=== PATIENT | male | born 1950 | race Caucasian/White ===

== ENCOUNTER 2016-11-07 06:44 | Day surgery (SDC) | payer OTHER ==
[~2016-11-07] VITALS: Ht 177.8 cm; Wt 109.6 kg
[2016-11-07] MEDS: NS 1000P @30 MLS/HR (KVO) IV SCH (07:15)
[2016-11-07 07:16] VITALS: BP 163/86; PULSE 78; RESP 18; TEMP 97.8; O2SAT 98
[2016-11-07] MEDS ORDERED: DILT120C9 PO (07:20)
[2016-11-07] MEDS ORDERED: ASPI81TA5 PO (07:20)
[2016-11-07] MEDS ORDERED: OMEP20TA PO (07:20)
[2016-11-07] MEDS ORDERED: NIAC500T5 PO (07:20)
[2016-11-07] MEDS ORDERED: LEVO125T4 PO (07:20)
[2016-11-07] MEDS ORDERED: NITR0.2D T-DERMAL (07:20)
[2016-11-07] MEDS ORDERED: LOVA40TA PO (07:20)
[2016-11-07] MEDS ORDERED: HYDR25TA5 PO (07:20)
[2016-11-07] MEDS ORDERED: ENAL20TA PO (07:20)
[2016-11-07] MEDS ORDERED: TOPR100T PO (07:20)
[2016-11-07 07:50] LABS: AUTOMATED NEUTROPHIL # 4.4 TH/MM3 (1.8-7.7); BASOPHIL % 0.5 % (0.0-2.0); EOSINOPHIL # 0.2 TH/MM3 (0-0.4); EOSINOPHIL % 2.5 % (0.0-4.0); HEMATOCRIT 44.2 % (39.0-51.0); HEMO FLAGS DIFF FINAL; LYMPH % 35.5 % (9.0-44.0); LYMPHOCYTE # 3.3 TH/MM3 (1.0-4.8); MEAN CORPUSCULAR HGB CONC 32.5 % (32.0-36.0); MONO % 13.7 % (0.0-8.0); NEUT % 47.8 % (16.0-70.0); PLATELET COUNT 257 TH/MM3 (150-450); RED BLOOD COUNT 4.97 MIL/MM3 (4.50-5.90); RED CELL DISTRIBUTION WIDTH 14.8 % (11.6-17.2); WHITE BLOOD COUNT 9.3 TH/MM3 (4.0-11.0)
[2016-11-07 08:00] LABS: APTT (PATIENT) 28.9 SEC (24.3-30.1); PROTHROMBIN TIME - PATIENT 10.7 SEC (9.8-11.6)
[2016-11-07 08:05] LABS: BICARBONATE 29.7 MEQ/L (21.0-32.0); POTASSIUM 3.9 MEQ/L (3.5-5.1)
[2016-11-07] MEDS ORDERED: HEPARIN-NS/PF INJ 500 ML ONE (10:12)
[2016-11-07] MEDS ORDERED: MIDAZOLAM HCL 5 MG/5 ML VIAL ONE (10:13)
[2016-11-07] MEDS ORDERED: TICAGRELOR 90 MG TAB PO ONE (11:00)
--- NOTE | 2016-11-07 11:13 | CATHPROC ---
[employer] HIS Report Study Information Study Number Scheduled Start Study Start [id number] 11/07/2016 Nov 07 2016 10:17AM Referring Institution Admit Source Facility Department 1 Other [facility] Physician and Clinical Staff Initial Li Rivera Veneer Taping Machine Offbearer Brendan RN, Nestor Recorder Tash Constantino,RT(R) Scrub Armando Oliver RCIS(BS) Procedures Performed Procedure Location (Site) Vessel Name Coronary Angiograms LCA Left Coronary Coronary Angiograms RCA Right Coronary Drug Eluting Inflatio CIRC Mid CIRC L Heart Cath PTCA CIRC Mid CIRC PTCA ADD ON'S Wire insertion Fem Art (right) Femoral Art Equipment Time Retail Planning Manager Description Size Mfg Part Number Used/Scraped WIRE, BALANCE MIDDLEWEIGHT [id number] 10:42 [employer] 190CM Used 190CM *[id number] TRANSDUCER, TRUWAVE 10:21 Trudev * [id number] Used W/dELiAsCK [id number] *[id number] [id number] *[id number] 10:58 DAIG/ST. MATEO MEDICAL ANGIOSEAL, FR6 VIP FR 6 [id number] Used [id number] 10:21 Ebix INDUSTRIES PACK, CCL CUSTOM * Used *[id number] 10:21 Ebix PACER PEN, SKIN DUAL W/ RULER * [id number] Used [id number] 10:48 MEDTRONIC BALLOON, 3.0 X 10MM EUPHORA 10MM Used *[id number] 10:52 MEDTRONIC STENT, 4.0 12 INTEGRITY 4.0 12 Used *[id number] 10:40 [employer] MEDICAL 30 ADARSH INDEFLATOR Used *[id number] [id number]-[id number]- 10:42 [employer] MEDICAL SHEATH, FR6.5 PRELUDE 11CM FR 6.5 038ACT Used *[id number] PSI-6F-11- 10:41 [employer] MEDICAL SHEATH, FR6.5 PRELUDE 11CM FR 6.5 038ACT Used *[id number] 10:21 turntable.fm WIRE, 3MMJ .035 180CM 180CM [id number] Used PROBE COVER, STERILE 10:21 [employer] MEDICAL * [id number] Used ULTRASOUND W/ GEL [id number] 10:21 NAMIC MANIFOLD, 4 PORT * Used *[id number] 10:21 NAMIC TUBING, HIGH PRESSURE 48" 48" Used *[id number] 10:40 NYCOMED OMNIPAQUE, 300 MG, 100ML 100ML [id number] Used 10:40 [employer]COMED OMNIPAQUE, 300 MG, 50ML 50ML [id number] Used 10:21 NYCOMED OMNIPAQUE, 350 MG, 100ML 100ML [id number] Used [id number] 10:21 MONGE MEDICAL BLANKET,WARM AIR CCL * Used *[id number] 10:21 TERUMO MEDICAL SHEATH, FR5 TERUMO (10CM) FR 5 [id number] Used Equipment Model, Serial, Lot Number and Expiration Data Description Model Number Serial Number Lot Number Expiration Date SHEATH, FR6.5 PRELUDE 11CM [id number] 09-27-2019 STENT, 4.0 12 INTEGRITY [id number] 12-12-2017 History: Current Medications Medication Dosage/Unit Route Frequency Last Date/Time Taken ASA Beta Royce Statins (any) Synthroid LOPRESSOR HCTZ History: Allergies Allergy Reaction No Known Allergies History: Risk Factors Family History of Hypertension Dyslipidemia Previous [place] Previous Heart Failure Premature CAD Yes Yes Yes No No Prior Valve Prior PCI Prior PCIDate Prior CABG Surgery No Yes 06/29/1996 No Cerebrovascular Peripheral Artery Chronic Lung On Dialysis Diabetes Disease Disease Disease No No No No No History: Symptoms/Diagnosis Selection Items Chest pain History: CV Disease Selection Items Known CAD History: Stress Tests Stress or Imaging Studies Performed Yes Standard Exercise Stress Test No Stress Echo No Stress Test SPECT Stress Test SPECT Result Stress Test SPECT Ischemia Risk/Extent Yes Positive Intermediate Stress Test CMR No Cardiac CTA Coronary Calcium Score No No History: Other Current Smoker No Labs Hgb (g/dl) Hct (%) WBC (l/cumm) Platelets (thousands) 12.00-18.00 37.00-55.00 4.80-10.80 140.00-450.00 14.4 44.2 9.3 257 Glucose (mg/dl) BUN (mg/dl) Creatinine (mg/dl) BUN:Creatinine (1:x) 60.00-110.00 8.00-20.00 0.10-9.00 10.00-20.00 122 25 1.0 25 Na (meq/l) K (meq/l) 138.00-146.00 3.80-5.10 140 3.9 INR (PTT:PT) 0.50-2.00 1 CPK-MB (ng/ML) 0.00-7.00 Not Drawn Medication Medication Total Dose (Bolus/Oral) Medication Total Dosage/Unit 1% XYLOCAINE 20 mL BRILLINTA 180 mg FENTANYL 100 mcg HEPARIN 8000 units VERSED 3 mg Medications (Bolus/Oral) Medication Time Given Dosage/Unit Administered By Reason VERSED 11/07/2016 10:17:42 AM 2 mg Nestor Cardona RN Patient arrived on 2 mg VERSED given by Nestor Cardona RN via Peripheral IV. FENTANYL 11/07/2016 10:18:54 AM 50 mcg Nestor Cardona RN Patient arrived on 50 mcg FENTANYL given by Nestor Cardona RN via Peripheral IV. 1% XYLOCAINE 11/07/2016 10:20:39 AM 20 mL Li Freeman Patient arrived on 20 mL 1% XYLOCAINE given by Li Freeman in Right Groin via Subcutaneous. HEPARIN 11/07/2016 10:40:42 AM 8000 units Nestor Cardona RN 8000 units HEPARIN given in lab by Nestor Cardona RN via Peripheral IV. VERSED 11/07/2016 10:41:30 AM 1 mg Nestor Cardona RN 1 mg VERSED given in lab by Nestor Cardona RN via Peripheral IV. FENTANYL 11/07/2016 10:55:28 AM 50 mcg Nestor Cardona RN 50 mcg FENTANYL given in lab by Nestor Cardona RN via Peripheral IV. BRILLINTA 11/07/2016 11:04:50 AM 180 mg Nestor Cardona RN 180 mg BRILLINTA given in lab by Nestor Cardona RN in Per mouth via Oral. Medication (Drip) Medication Time Given Dosage/Unit Concentration/Unit Diluent (ml) Solution IV Solutions 11/07/2016 10:20:09 AM 0 mL (IV) 500 NaCl .9 Patient arrived on IV Solutions via Peripheral IV. Pump/Drip Flow = 20 ml/hr using NaCl .9. Initial Case Assessment Cardiovascular HR Rhythm NIBP Chest Pain 79 REG 187/94 2 Edema Present Skin color Skin None Normal Warm Circulatory - Right Pulses Dorsalis Pedis Femoral 3 3 Scale (0,1,2,3,4,d) Circulatory - Left Pulses Dorsalis Pedis Femoral 3 3 Scale (0,1,2,3,4,d) Circulatory - Lower Extremities Color Lower Right Color Lower Left Normal Normal Neurological State Oriented to time-place- Alert Moves all extremities person Respiration - General Respiration Rate SpO2 (%) (B/min) 11 96 Final Case Assessment Cardiovascular HR Rhythm NIBP Chest Pain 81 REG 156/90 0 Edema Present Skin color Skin None Normal Warm Circulatory - Right Pulses Dorsalis Pedis Femoral 3 3 Scale (0,1,2,3,4,d) Circulatory - Left Pulses Dorsalis Pedis Femoral 3 3 Scale (0,1,2,3,4,d) Circulatory - Lower Extremities Color Lower Right Color Lower Left Normal Normal Neurological State Oriented to time-place- Alert Moves all extremities person Respiration - General Respiration Rate SpO2 (%) O2 (lpm) (B/min) 14 96 2 Chronological Log Time Study Chronological Log 10:00:54 Patient arrived via Bed. 10:01:40 Patient Name, D.O.B, / Armband Verified By R.N. Vitals capture started with the following parameters, Patient=Adult, Interval=5 min, Initial Pr tydtdi=176 mmHg, 10:16:45 Deflation Rate=5 mmHg 10:17:13 Pressure channel 1 zeroed. 10:17:42 Patient arrived on 2 mg VERSED given by Nestor Cardona RN via Peripheral IV. 10:18:54 Patient arrived on 50 mcg FENTANYL given by Nestor Cardona RN via Peripheral IV. 10:19:32 Consent signed by the physician and the patient and verified by the [facility] staff. 10:19:33 Pre-op and post- op instructions given; patient acknowledges understanding of instructions. 10:19:34 Verbal Stimulation=2 Physical Stimulation=2 Airway=2 Respiration=2 TOTAL=8. (0=absent, 1=li mited, 2=present) 10:20:04 Patient has been NPO for More than 6Hrs. 10:20:04 Skin Breakdown- 10:20:08 HR=83 bpm, MGYC=091/93 mmhg, SpO2=95.0 %, Resp=17 B/min, Pain=3, Genesis=10, Archuleta=2 10:20:08 A # 20 IV was noted in the Antecubital (left). Grade = 0 10:20:09 Patient arrived on IV Solutions via Peripheral IV. Pump/Drip Flow = 20 ml/hr using NaCl .9. 10:20:25 History and physical on the chart or being dictated. Assessment: Initial Case, HR=79 BPM, Rhythm=REG, OUZJ=761/94 mmhg, Chest Pain=2, Edema=None, Color=Normal, Skin = Warm Right Pulses: Augustus Ped=3, Femoral=3 Left Pulses: Augustus Ped=3, Femoral=3 10:20:26 Lower Right Extremities: Color=Normal Lower Left Extremities: Color=Normal Neurological: State=Alert, Ox3, KILGORE Respiration: Resp=11 B/min, SpO2=96 % 10:20:29 MD arrived. 10:20:30 A SHEATH, FR5 TERUMO (10CM) FR 5 was advanced into the Fem Art (right) using the Percutaneo us technique. Time Out. Correct patient, correct procedure,correct physician, ,power injector loaded or not l oaded with contrast with 10:20:34 surgical team present. Time Out Concurred by MD, individual staff and INVENTORY REPRESENTATIVE in procedure 10:20:37 Case Start 10:20:38 Verbal Stimulation=2 Physical Stimulation=2 Airway=2 Respiration=2 TOTAL=8. (0=absent, 1=li mited, 2=present) 10:20:39 Patient arrived on 20 mL 1% XYLOCAINE given by Li Freeman in Right Groin via Subcutane ous. 10:20:44 Access site was Right Femoral Artery.RT WITH U/S DEVICE 10:20:57 A wire was inserted via Fem Art (right). A PIGTAIL ANG. INFINITI CATHETER FR 5 was advanced over a wire. OMNIPAQUE, 350 MG, 100ML 100ML was used 10:21:00 for injections. Recorded Pressure: LV, HR=77, Condition=Condition 1 10:22:43 (Left Ventricle) LV 114/-1/16 Recorded Pressure: LV, Ao, HR=85, Condition=Condition 1 10:24:33 (Left Ventricle) LV 148/7/20, (Aorta) Ao ?/?/? 10:25:09 HR=81 bpm, EMQL=218/89 mmhg, SpO2=92.0 %, Resp=17 B/min, Pain=2, Genesis=10, Archuleta=2 Recorded Pressure: LV, HR=77, Condition=Condition 1 10:26:34 (Left Ventricle) LV 165/0/13 Recorded Pressure: LV, Ao, HR=79, Condition=Condition 1 10:27:14 (Left Ventricle) LV 147/1/14, (Aorta) Ao 147/69/102 10:28:07 Catheter was removed A JL 4.0 INFINITI CATHETER FR 5 was advanced over a wire. OMNIPAQUE, 350 MG, 100ML 100ML was us ed for 10:28:09 injections. 10:28:39 The LCA was injected and visualized at various angles. OMNIPAQUE, 350 MG, 100ML 100ML used . Recorded Pressure: Ao, HR=76, Condition=Condition 1 10:29:14 (Aorta) Ao 142/68/100 10:29:32 Catheter was removed 10:30:33 HR=83 bpm, TFAG=027/79 mmhg, SpO2=91.0 %, Resp=16 B/min, Pain=2, Genesis=10, Archuleta=2 A AR MOD INFINITI CATHETER FR 4 was advanced over a wire. OMNIPAQUE, 350 MG, 100ML 100ML was us ed for 10:30:39 injections. 10:31:46 The RCA was injected and visualized at various angles. OMNIPAQUE, 350 MG, 100ML 100ML used . 10:32:17 Catheter was removed 10:35:03 HR=82 bpm, ODQK=501/84 mmhg, SpO2=90.0 %, Resp=15 B/min, Pain=2, Genesis=10, Archuleta=2 10:36:59 Reference ECG taken 10:40:06 HR=77 bpm, GOZJ=708/81 mmhg, SpO2=91.0 %, Resp=17 B/min, Pain=2, Genesis=10, Archuleta=2 10:40:10 OMNIPAQUE, 300 MG, 50ML 50ML and 30 ADARSH INDEFLATOR added. A SHEATH, FR6.5 PRELUDE 11CM FR 6.5 was exchanged in the Fem Art (right). This was necessary in order 10:40:32 ~REASON~. 10:40:42 8000 units HEPARIN given in lab by Nestor Cardona RN via Peripheral IV. 10:41:30 1 mg VERSED given in lab by Nestor Cardona RN via Peripheral IV. A XB 4.0 GUIDE CATHETER FR 6 was advanced over a wire. OMNIPAQUE, 350 MG, 100ML 100ML was used for :41:39 injections. 10:43:30 A WIRE, BALANCE MIDDLEWEIGHT 190CM 190CM was inserted via Fem Art (right). 10:45:09 HR=81 bpm, OHEU=375/70 mmhg, SpO2=92.0 %, Resp=19 B/min, Pain=2, Genesis=10, Archuleta=2 10:46:27 Interventional wire has crossed the lesion 10:47:02 Activated Clotting Time Drawn A BALLOON, 3.0 X 10MM EUPHORA 10MM was inserted over WIRE, BALANCE MIDDLEWEIGHT 190CM 190CM via the 10:48:09 CIRC Mid. A BALLOON, 3.0 X 10MM EUPHORA 10MM over a WIRE, BALANCE MIDDLEWEIGHT 190CM 190CM in the CIRC Mi d was 10:48:24 inflated using a 30 ADARSH INDEFLATOR at 17 adarsh for 30 sec. A BALLOON, 3.0 X 10MM EUPHORA 10MM over a WIRE, BALANCE MIDDLEWEIGHT 190CM 190CM in the CIRC Mi d was 10:48:47 inflated using a 30 ADARSH INDEFLATOR at 17 adarsh for 30 sec. A BALLOON, 3.0 X 10MM EUPHORA 10MM over a WIRE, BALANCE MIDDLEWEIGHT 190CM 190CM in the CIRC Mi d was 10:48:55 inflated using a 30 ADARSH INDEFLATOR at 17 adarsh for 20 sec. 10:49:44 Balloon Removed. 10:50:09 Delivery device removed 10:50:41 HR=78 bpm, DNZS=084/91 mmhg, SpO2=96.0 %, Resp=17 B/min, Pain=2, Genesis=10, Archuleta=2 A STENT, 4.0 12 INTEGRITY 4.0 12 was deployed using a 30 ADARSH INDEFLATOR at 9 atmospheres for 30 seconds in 10:51:21 the CIRC Mid. 10:53:29 The LCA was injected and visualized at various angles. OMNIPAQUE, 350 MG, 100ML 100ML used . 10:54:24 Re-inflated the stent balloon in the CIRC Mid to 15 ADARSH for 20 seconds. 10:55:03 HR=79 bpm, RXKV=163/90 mmhg, SpO2=96.0 %, Resp=17 B/min, Pain=2, Genesis=10, Archuleta=2 10:55:28 50 mcg FENTANYL given in lab by Nestor Cardona RN via Peripheral IV. 10:55:29 Delivery device removed 10:55:46 The LCA was injected and visualized at various angles. OMNIPAQUE, 350 MG, 100ML 100ML used . 10:56:24 ACT (Normal Range 90-180) = 291 10:57:11 Delivery device removed 10:57:30 An injection in the Fem Art (right) was made through the SHEATH, FR6.5 PRELUDE 11CM FR 6.5. Assessment: Final Case, HR=81 BPM, Rhythm=REG, WHPZ=655/90 mmhg, Chest Pain=0, Edema=None, Caballo r=Normal, Skin = Warm Right Pulses: Augustus Ped=3, Femoral=3 Left Pulses: Augustus Ped=3, Femoral=3 10:57:50 Lower Right Extremities: Color=Normal Lower Left Extremities: Color=Normal Neurological: State=Alert, Ox3, KILGORE Respiration: Resp=14 B/min, SpO2=96 %, O2=2 lpm 10:58:03 Catheter(s) removed without difficulty 10:58:05 ANGIOSEAL, FR6 VIP FR 6 placement in the Fem Art (right) 10:58:29 Sterile dressing applied to site 10:58:31 No case complications noted. 10:58:33 Cine recording checked. 11:00:06 HR=77 bpm, MRBY=341/90 mmhg, SpO2=96.0 %, Resp=12 B/min, Pain=0, Geensis=10, Archuleta=2 11:00:16 Case End 11:00:51 Bedside Report will be given. 11:00:51 Implantable Device card placed in patient's chart. 11:00:52 Contrast Scanned 11:00:55 A Left Heart Cath was performed. 11:00:56 Clinical correlaton risk stratification. 11:04:50 180 mg BRILLINTA given in lab by Nestor Cardona RN in Per mouth via Oral. End Study - Contrast Media Used In Study Contrast Total Opened (mL) Total Used (mL) Total Wasted (mL) Omnipaque 120 120 0 End Study - Maximum Contrast Load Max Contrast Load (mL) 577.5 End Study - Radiation Exposure Fluoro Time (minutes) 3.0 End Study - Sheaths Sheaths Pulled By Sheath Hold Time (min) Li Freeman 2 End Study - Patient Disposition Complications Transferred To Interventional Outcome No Regular Bed successful
[2016-11-07] MEDS ORDERED: ACETAMINOPHEN 325 MG TAB PO PRN (11:15)
[2016-11-07] MEDS ORDERED: MISC INFORMATION XX ONE (11:15)
[2016-11-07] MEDS ORDERED: oxyCODONE/ACETAMINOPHEN 5 MG/325 MG TAB PO PRN (11:15)
[2016-11-07] MEDS ORDERED: TEMAZEPAM 15 MG CAP PO PRN (11:15)
[2016-11-07] MEDS ORDERED: LIDOCAINE 2% JELLY 30 ML TUBE TOP PRN (11:15)
[2016-11-07] MEDS ORDERED: IOHEXOL 350 MG/ML 100 ML BTL (for Cath Lab) OTHER ONE (12:03)
--- NOTE | 2016-11-07 12:03 | EKG ---
Date Performed: 11/07/2016 Time Performed: 08:43:50 PTAGE: 66 years EKG: Sinus rhythm with 1st degree A-V block. Right bundle branch block Abnormal ECG NO PREVIOUS TRACING DOCTOR: Jc Martin Interpretating Date/Time 11/07/2016 12:01:44
[2016-11-07] MEDS ORDERED: SODIUM CHLOR 0.9% 1000 ML INJ 1,000 ML IV SCH (13:00)
[2016-11-07] MEDS ORDERED: ATORVASTATIN 80 MG TAB PO SCH (13:00)
[2016-11-07] MEDS ORDERED: ASPIRIN 81 MG CHEW TAB PO SCH (13:30)
[2016-11-07 17:19] VITALS: BP 148/79; PULSE 63; RESP 16; TEMP 97.8; O2SAT 94
[2016-11-07 20:00] VITALS: BP 145/91; PULSE 68; RESP 20; TEMP 98; O2SAT 95
[2016-11-07] MEDS: TICAGRELOR 90 MG TAB PO SCH (20:48)
[2016-11-07] MEDS: ENALAPRIL MALEATE 10 MG TAB PO SCH (20:49)
[2016-11-07 21:00] VITALS: PULSE 70
[2016-11-07] MEDS ORDERED: NIACIN 100 MG TAB PO SCH (21:00)
[2016-11-07 22:00] VITALS: PULSE 72
[2016-11-07 23:00] VITALS: PULSE 69
[2016-11-08] VITALS (15 sets, daily range): BP systolic 127–157; BP diastolic 80–88; PULSE 61–68; RESP 18–20; TEMP 97.6–98.3; O2SAT 64–96
[2016-11-08] MEDS ORDERED: LEVOTHYROXINE SODIUM 125 MCG TAB PO SCH (06:00)
[2016-11-08 06:55] LABS: AUTOMATED NEUTROPHIL # 7.8 TH/MM3 (1.8-7.7); BASOPHIL % 0.3 % (0.0-2.0); EOSINOPHIL # 0.2 TH/MM3 (0-0.4); EOSINOPHIL % 1.7 % (0.0-4.0); HEMATOCRIT 41.6 % (39.0-51.0); HEMO FLAGS DIFF FINAL; LYMPH % 20.2 % (9.0-44.0); LYMPHOCYTE # 2.4 TH/MM3 (1.0-4.8); MEAN CELL VOLUME 87.7 FL (80.0-100.0); MEAN CORPUSCULAR HEMOGLOBIN 29.9 PG (27.0-34.0); MEAN CORPUSCULAR HGB CONC 34.1 % (32.0-36.0); NEUT % 65.8 % (16.0-70.0); PLATELET COUNT 257 TH/MM3 (150-450); RED BLOOD COUNT 4.74 MIL/MM3 (4.50-5.90); RED CELL DISTRIBUTION WIDTH 14.7 % (11.6-17.2); WHITE BLOOD COUNT 11.8 TH/MM3 (4.0-11.0)
[2016-11-08] MEDS: NS 1000P @30 MLS/HR (KVO) IV SCH (07:15)
[2016-11-08 07:21] LABS: BICARBONATE 27.8 MEQ/L (21.0-32.0); HDL CHOLESTEROL 33.8 MG/DL (40.0-60.0); POTASSIUM 3.8 MEQ/L (3.5-5.1)
[2016-11-08 07:42] LABS: CKMB 2.3 NG/ML (0.5-3.6)
[2016-11-08] MEDS: ENALAPRIL MALEATE 10 MG TAB PO SCH (08:23)
[2016-11-08] MEDS: TICAGRELOR 90 MG TAB PO SCH (08:23)
[2016-11-08] MEDS ORDERED: HYDROCHLOROTHIAZIDE 25 MG TAB PO SCH (09:00)
[2016-11-08] MEDS ORDERED: ASPIRIN EC 81 MG TABEC PO SCH (09:00)
[2016-11-08] MEDS ORDERED: PANTOPRAZOLE SOD 20 MG DELAYED RELEASE TAB PO SCH (09:00)
[2016-11-08] MEDS ORDERED: DILTIAZEM-CD 120 MG CAP ER PO SCH (09:00)
[2016-11-08] MEDS ORDERED: METOPROLOL SUCCINATE 50 MG EXTENDED RELEASE TAB PO SCH (09:00)
--- NOTE | 2016-11-08 13:43 | EKG ---
Date Performed: 11/08/2016 Time Performed: 05:18:08 PTAGE: 66 years EKG: Sinus rhythm with 1st degree A-V block Right bundle branch block Since previous tracing, no significant change no umm Abnormal ECG PREVIOUS TRACING : 11/07/2016 08.43 DOCTOR: Lacey Galeano Interpretating Date/Time 11/08/2016 13:42:21
[2016-11-08] MEDS ORDERED: ATOR1TAB18 PO (14:11)
[2016-11-08] MEDS ORDERED: BRIL90TA PO (14:11)
--- NOTE | 2016-11-08 14:12 | PD.CARD.PN ---
Objective Vital Signs / I&O Vital Signs Date Time Temp Pulse Resp B/P Pulse Ox O2 Delivery O2 Flow Rate FiO2 11/08/16 13:23 64 11/08/16 12:34 63 11/08/16 11:30 97.9 66 19 157/88 95 11/08/16 11:00 63 11/08/16 10:00 66 11/08/16 09:00 68 11/08/16 08:00 64 11/08/16 07:00 97.6 64 19 150/86 96 11/08/16 07:00 96 Room Air 11/08/16 07:00 64 11/08/16 06:00 62 11/08/16 05:00 66 11/08/16 04:00 63 11/08/16 04:00 98.3 63 20 156/82 94 11/08/16 04:00 Room Air 11/08/16 03:00 65 11/08/16 02:00 61 11/08/16 01:00 65 11/08/16 00:00 64 11/08/16 00:00 Room Air 11/08/16 00:00 98.2 68 18 127/80 64 11/07/16 23:00 69 11/07/16 22:00 72 11/07/16 21:00 70 11/07/16 20:00 68 11/07/16 20:00 Room Air 11/07/16 20:00 98.0 68 20 145/91 95 11/07/16 17:19 97.8 63 16 148/79 94 I/O 11/07/16 11/07/16 11/07/16 11/08/16 11/08/16 11/08/16 07:00 15:00 23:00 07:00 15:00 23:00 Intake Total 240 ml 780 ml Output Total 800 ml Balance 240 ml -20 ml Intake Oral 240 ml 480 ml IV Total 300 ml Output Urine Total 800 ml # Voids 1 # Bowel Movements 0 0 Laboratory Laboratory Tests Test 11/08/16 05:25 White Blood Count 11.8 TH/MM3 Red Blood Count 4.74 MIL/MM3 Hemoglobin 14.2 GM/DL Hematocrit 41.6 % Mean Corpuscular Volume 87.7 FL Mean Corpuscular Hemoglobin 29.9 PG Mean Corpuscular Hemoglobin 34.1 % Concent Red Cell Distribution Width 14.7 % Platelet Count 257 TH/MM3 Mean Platelet Volume 8.4 FL Neutrophils (%) (Auto) 65.8 % Lymphocytes (%) (Auto) 20.2 % Monocytes (%) (Auto) 12.0 % Eosinophils (%) (Auto) 1.7 % Basophils (%) (Auto) 0.3 % Neutrophils # (Auto) 7.8 TH/MM3 Lymphocytes # (Auto) 2.4 TH/MM3 Monocytes # (Auto) 1.4 TH/MM3 Eosinophils # (Auto) 0.2 TH/MM3 Basophils # (Auto) 0.0 TH/MM3 CBC Comment DIFF FINAL Differential Comment Sodium Level 137 MEQ/L Potassium Level 3.8 MEQ/L Chloride Level 99 MEQ/L Carbon Dioxide Level 27.8 MEQ/L Anion Gap 10 MEQ/L Blood Urea Nitrogen 18 MG/DL Creatinine 0.95 MG/DL Estimat Glomerular Filtration 79 ML/MIN Rate Random Glucose 106 MG/DL Calcium Level 9.0 MG/DL Total Creatine Kinase 686 U/L Creatine Kinase MB 2.3 NG/ML Creatine Kinase MB % 0.3 % Triglycerides Level 291 MG/DL Cholesterol Level 162 MG/DL LDL Cholesterol 70 MG/DL HDL Cholesterol 33.8 MG/DL Cholesterol/HDL Ratio 4.79 RATIO Assessment and Plan Assessment and Plan WILL CONT CURRENT RX INCLUDING ASA AND TICAGRELORPOD 1 PCI STABLE NO CP SOB NO CHICHI R GROIN OK LCTA RRR NO GALLOP OK TO DC PT CV WELLER CONT CURRENT INCLUDING ASA AND TICAGRELOR Tad Diaz DO November 08, 2016 14:12
--- NOTE | 2016-11-08 19:39 | MR ---
cc: CHER CURRIE DATE: 11/07/2016. INDICATIONS FOR THE PROCEDURE: Coronary artery disease, class II angina. The patient is on two antianginal medications. Intermediate probability nuclear myocardial perfusion study. PROCEDURES PERFORMED: 1. Retrograde left heart catheterization with left ventriculography and selective coronary angiography. 2. Angioplasty and stenting of the mid left circumflex artery. 3. Moderate sedation. ACCESS SITE: Right femoral artery. EQUIPMENT USED: 5-Maori pigtail catheter. 5-Maori JL4 and JR modified coronary artery catheters. XB4 guide. BMW wire. 3.0 x 10 mm balloon for pre-dilatation. 4.0 x 12 mm Integrity stent at 16 atmospheres. MEDICATIONS: Versed IV. Fentanyl IV. Heparin IV. Brilinta 180 milligrams p.o. CONTRAST: Omnipaque 120 cc. COMPLICATIONS: None. METHOD OF HEMOSTASIS: Angioseal closure. ESTIMATED BLOOD LOSS: Less than 10 cc. RESULTS HEMODYNAMICS: Heart rate 70 beats per minute. Left ventricular end diastolic pressure 8 mmHg. Left ventricle 145/8. Aorta 145/58/100. Ejection fraction 70%. The left ventricle is hyperdynamic. There is evidence of moderate mitral regurgitation. CORONARY ANGIOGRAPHY: The left main coronary artery is patent. The left anterior descending artery has patent stent in the mid portion. The first diagonal artery is totally occluded in stent and fills by a large [id number] collateral from the distal left anterior descending artery. The left circumflex artery has 90% stenosis in the mid portion. Lesion length 8 mm, pre BRAD flow 3, post BRAD flow 3, post stenosis 0. The OM #1 is patent. The OM #2 is patent. The right coronary artery is dominant and patent. The PDA is patent. The PLV is patent. DIAGNOSIS: 1. Coronary artery disease with severe stenosis of the mid left circumflex artery, patent stent in the mid left anterior descending and occluded stent in the first diagonal artery with distal vessels filling by collaterals. 2. Well preserved, hyper-dynamic left ventricular systolic function. 3. Moderate mitral regurgitation. 4. Successful angioplasty and stenting of the mid left circumflex artery. DISPOSITION: Mr. Grossman will be monitored on telemetry after his procedure with serial enzymes and EKGs. We will continue aggressive modification of his cardiac risk factors. We will continue therapy with Brilinta and baby aspirin. He will be discharged home tomorrow if stable. I will see him back for followup in our office after discharge. MD WILLAM Meadows/ASHANTI /11:12 AM /7:30 PM HA
== END 2016-11-08 14:38 | disposition home or self-care (01) ==
LOC: HDOC 06:44 → HDIC 06:45 → HCIS 17:16 → HDOC 11-08 14:38
PROVIDERS: ATTEND Internal Medicine Interventional Cardiology
DX: I25.118 Atherosclerotic heart disease of native coronary artery with other forms of angina pectoris (principal); I45.19 Other right bundle-branch block; I44.0 Atrioventricular block, first degree; I34.0 Nonrheumatic mitral (valve) insufficiency; R79.89 Other specified abnormal findings of blood chemistry
CPT/HCPCS: 80048; 80061; 82550; 82552; 85002; 85025; 85610; 85730; 92928; 93005; 93458; C1725; C1760; C1769; C1876; C1887; C1893; G0269; J1644; J2250; J3010; Q9967

== ENCOUNTER 2017-11-16 12:01 | Day surgery (SDC) | END 2017-11-16 19:23 | disposition home or self-care (01) | DX: I25.810 Atherosclerosis of coronary artery bypass graft(s) without angina pectoris (principal); I25.82 Chronic total occlusion of coronary artery; Z95.5 Presence of coronary angioplasty implant and graft; I45.10 Unspecified right bundle-branch block; Z79.01 Long term (current) use of anticoagulants | CPT/HCPCS: 80048; 85025; 85610; 85730; 93005; 93458; 93567; C1769; C1893; G0269; J1644; J2250; J3010 ==